=== PATIENT | male | born 1955 | race Native Hawaiian/Other Pacific Islander ===

== ENCOUNTER 2021-09-29 15:54 | Emergency (ER) | payer OTHER ==
[~2021-09-29] VITALS: Ht 172.7 cm; Wt 63.5 kg
[2021-09-29 15:55] VITALS: BP 151/81; TEMP 97.4
[2021-09-29 16:25] LABS: PLATELET COUNT 322 K/uL (142-355)
[2021-09-29 16:27] LABS: POTASSIUM 4.2 mmol/L (3.6-5.2)
[2021-09-29] MEDS ORDERED: LAMICTAL100 MG PO (22:41)
[2021-09-29] MEDS ORDERED: DOXEPIN HCL50 MG PO (22:46)
[2021-09-30] MEDS ORDERED: DOXEPIN HCL50 MG PO (08:01)
[2021-09-30] MEDS ORDERED: FAMOTIDINE40 MG PO (08:02)
[2021-09-30] MEDS ORDERED: IBU800 MG PO (08:03)
[2021-09-30] MEDS ORDERED: LITHIUM CARB300 MG PO (08:04)
[2021-09-30] MEDS ORDERED: CYPROHEPTADINE H4 MG PO (08:05)
[2021-09-30] MEDS ORDERED: NAMZARIC 28-101 CAP PO (08:06)
[2021-09-30] MEDS ORDERED: LAMOTRIGINE100 MG PO (08:06)
[2021-09-30] MEDS ORDERED: TRIHEXYPHEN2 MG PO (08:07)
[2021-09-30] MEDS ORDERED: EUTHYROX50 MCG PO (08:08)
== END 2021-09-29 17:09 | disposition still patient (30) ==
LOC: ED 15:54
PROVIDERS: Emergency Medicine
DX: F03.91 Unspecified dementia, unspecified severity, with behavioral disturbance (principal); Z11.52 Encounter for screening for COVID-19; Z04.6 Encounter for general psychiatric examination, requested by authority
CPT/HCPCS: 80053; 80320; 80329; 85027; 87635; 93005; 99283; U0003